=== PATIENT | female | born 1935 | race Two or more races ===

== ENCOUNTER 2018-01-11 20:03 | Emergency (ER) | payer OTHER ==
[~2018-01-11] VITALS: Ht 167.6 cm; Wt 90.7 kg
[2018-01-11] MEDS ORDERED: IPRATROPIUM BROM 0.5 MG/2.5ML INH SOL HHN ONE (20:15)
[2018-01-11] MEDS ORDERED: ALBUTEROL SULF 2.5 MG/0.5ML(0.5%) NEB SOLN HHN ONE (20:15)
[2018-01-11] MEDS ORDERED: methylPREDNISolone SOD SUCC 125 MG/2 ML VL IV ONE (20:15)
[2018-01-11] MEDS ORDERED: FUROSEMIDE 100 MG/10ML VIAL IV ONE (20:15)
[2018-01-11 20:42] LABS: Basophils # (auto) 0 uL; Basophils % (auto) 0.4 % (0.0-2.0); Eosinophils # (auto) 0 uL; Eosinophils % (auto) 0.7 % (0.0-7.0); Hematocrit 38.3 % (36.0-46.0); Hemoglobin 12.4 g/dL (12.2-16.2); Lymphocytes # (auto) 2.6 uL; Lymphocytes % (auto) 36.1 % (10.0-50.0); Mean Corpuscular Hemoglobin 29.9 pg (28.0-32.0); Mean Corpuscular Hgb Conc. 32.4 g/dL (32.0-36.0); Mean Corpuscular Volume 92.4 fL (80.0-100.0); Monocytes # (auto) 0.5 uL; Monocytes % (auto) 7.5 % (0.0-12.0); Neutrophils % (auto) 55.3 % (37.0-80.0); Nucleated Red Blood Cells % 0.1 %; Platelet Count (auto) 198 10^3/uL (140-450); Red Blood Cells 4.15 10^6/uL (4.0-5.20); White Blood Cell 7.2 10^3/uL (4.4-10.8)
[2018-01-11 20:48] LABS: Urine Bacteria FEW /hpf (None Seen); Urine Blood Negative /uL (Negative); Urine Mucus FEW (None Seen); Urine WBC <1 /hpf (0 - 5)
[2018-01-11 21:05] LABS: Albumin 3.4 g/dL (3.4-5.0); BUN/Creatinine Ratio 32.4; Bilirubin, Total 0.4 mg/dL (0.2-1.0); Calcium 8.8 mg/dL (8.5-10.1); Magnesium 2.1 mg/dL (1.6-2.6); Potassium 3.8 mmol/L (3.5-5.1); Total Protein 7.3 g/dL (6.4-8.2)
[2018-01-11 23:01] LABS: Partial Thromboplastin Time 23.3 sec (23.78-33.04); Prothrombin Time 10.7 sec (9.27-12.13)
[2018-01-11] MEDS ORDERED: METOPROLOL TARTRATE 1MG/1ML-5ML VIAL IV ONE (23:15)
[2018-01-11] MEDS ORDERED: ASPirin 81 mg TAB PO ONE (23:15)
[2018-01-12 03:57] VITALS: BP 125/84
[2018-01-12] MEDS ORDERED: NITROGLYCERIN 0.4 MG SL TAB SL ONE (10:00)
== END 2018-01-12 03:14 | disposition short-term general hospital (02) ==
LOC: ER 20:03 → EDBD 20:03 → ER 01-12 03:14
DX: I11.0 Hypertensive heart disease with heart failure (principal); I50.9 Heart failure, unspecified; J01.00 Acute maxillary sinusitis, unspecified; R00.0 Tachycardia, unspecified; J98.01 Acute bronchospasm; R79.89 Other specified abnormal findings of blood chemistry; E11.9 Type 2 diabetes mellitus without complications; E78.5 Hyperlipidemia, unspecified; Z90.49 Acquired absence of other specified parts of digestive tract
CPT/HCPCS: 36415; 71045; 80053; 81001; 82962; 83735; 83880; 84484; 85025; 85610; 85730; 93005; 94640; 94761; 96374; 96375; 99285; J1940; J2930; J7611; J7644